=== PATIENT | female | born 1995 | race Caucasian/White ===

== ENCOUNTER 2019-06-01 16:37 | Emergency (ER) | payer OTHER ==
[~2019-06-01] VITALS: Ht 152.4 cm; Wt 59.9 kg
[2019-06-01 16:43] VITALS: Ht 152.4 cm; Wt 59.9 kg
[2019-06-01 17:56] LABS: BASOPHIL % 0.6 % (0-2); PLATELET COUNT 302 x10^3mcL (130-400)
[2019-06-01 18:05] LABS: RED CELL DISTRIBUTION WIDTH 14.6 % (11.5-14.5)
[2019-06-01 18:24] LABS: CARBON DIOXIDE 29.4 mmol/L (21-32); CHLORIDE SERUM 101 mmol/L (98-107); CREATININE SERUM 0.8 mg/dL (0.6-1.0); GFR1 > 60 mL/min; GLUCOSE SERUM 69 mg/dL (74-106); POTASSIUM SERUM 4.4 mmol/L (3.5-5.1); SODIUM SERUM 140 mmol/L (136-145)
[2019-06-01 18:28] LABS: ALBUMIN 3.5 g/dL (3.4-5.0); ALKALINE PHOSPHATASE 52 U/L (46-116); ALT/SGPT 20 U/L (14-59); AST/SGOT 10 U/L (15-37); BILIRUBIN TOTAL 0.3 mg/dL (0.20-1.00); TOTAL PROTEIN, SERUM 6.9 g/dL (6.4-8.2)
[2019-06-01 19:14] VITALS: BP 97/65
== END 2019-06-01 19:14 | disposition home or self-care (01) ==
LOC: ED 16:37
PROVIDERS: Emergency Medicine
DX: R55 Syncope and collapse (principal); R42 Dizziness and giddiness
CPT/HCPCS: J7030

== ENCOUNTER 2019-06-24 16:27 | Emergency (ER) | payer OTHER ==
[~2019-06-24] VITALS: Ht 152.4 cm; Wt 56.7 kg
[2019-06-24 16:42] VITALS: BP 113/78; Ht 152.4 cm; Wt 56.7 kg
== END 2019-06-24 17:54 | disposition home or self-care (01) ==
LOC: ED 16:27
DX: H00.015 Hordeolum externum left lower eyelid (principal)

== ENCOUNTER 2019-12-11 07:55 | Emergency (ER) | payer OTHER ==
[~2019-12-11] VITALS: Ht 152.4 cm; Wt 54.4 kg
[2019-12-11 07:57] VITALS: Ht 152.4 cm; Wt 54.4 kg
[2019-12-11 09:14] VITALS: BP 121/70
== END 2019-12-11 09:14 | disposition home or self-care (01) ==
LOC: ED 07:55
DX: H00.012 Hordeolum externum right lower eyelid (principal)

== ENCOUNTER 2020-04-07 09:38 | Emergency (ER) | payer OTHER ==
[~2020-04-07] VITALS: Ht 152.4 cm; Wt 55.8 kg
[2020-04-07 09:41] VITALS: Ht 152.4 cm; Wt 55.8 kg
[2020-04-07 11:59] LABS: BASOPHIL % 0.8 % (0-2); PLATELET COUNT 238 x10^3mcL (130-400); RED CELL DISTRIBUTION WIDTH 13.8 % (11.5-14.5)
[2020-04-07 12:46] VITALS: BP 110/72
== END 2020-04-07 12:46 | disposition home or self-care (01) ==
LOC: ED 09:38
PROVIDERS: Emergency Medicine
DX: O20.0 Threatened abortion (principal); Z3A.08 8 weeks gestation of pregnancy
CPT/HCPCS: 36415

== ENCOUNTER 2020-04-09 10:22 | Emergency (ER) | payer OTHER ==
[~2020-04-09] VITALS: Ht 152.4 cm; Wt 56.2 kg
[2020-04-09 10:32] VITALS: Ht 152.4 cm; Wt 56.2 kg
[2020-04-09 11:13] LABS: PLATELET COUNT 259 x10^3mcL (130-400); RED CELL DISTRIBUTION WIDTH 13.4 % (11.5-14.5)
[2020-04-09 11:14] LABS: BASOPHIL % 2.2 % (0-2)
[2020-04-09 13:03] VITALS: BP 125/79
== END 2020-04-09 13:03 | disposition home or self-care (01) ==
LOC: ED 10:22
PROVIDERS: Emergency Medicine
DX: O02.1 Missed abortion (principal); F17.210 Nicotine dependence, cigarettes, uncomplicated
CPT/HCPCS: 36415; 99406